=== PATIENT | female | born 1990 | race American Indian/Alaskan Native ===

== ENCOUNTER → 2016-12-18 | Outpatient (CLI) | payer BC ==
[~2016-12-18] MED LIST: IBU600 MG PO; MOTRIN 600600 MG/TAB PO; NORCO 325 MG-51 TAB PO; PRENATAL; PRENATAL1 TA2 PO
== END ==
LOC: LDRO 16:04
DX: Z53.9 Procedure and treatment not carried out, unspecified reason (principal)

== ENCOUNTER 2017-01-23 02:42 | Inpatient (IN) | payer OTHER, BC ==
[~2017-01-23] VITALS: Ht 172.7 cm; Wt 105.5 kg
[2017-01-23] VITALS (17 sets, daily range): BP systolic 103–146; BP diastolic 53–76; PULSE 72–117; TEMP 97.6–98.2
[~2017-01-23 02:42] MED LIST changes: -IBU600 MG PO; -PRENATAL
[2017-01-23 03:52] LABS: BASO # 0.1 (0.0-0.2); BASO % 0.3 % (0.0-2.0); EOS % 0.2 % (0-4.0); GRAN # 11.6 (1.4-6.5); GRAN % 75.3 % (42.2-75.2); HEMOGLOBIN 12.3 g/dl (12.5-16.0); LYMPH # 2.5 (1.2-3.4); LYMPH % 16.1 % (20.0-51.0); MEAN CELL VOLUME 83 fl (80.0-100.0); MEAN CORPUSCULAR HEMOGLOBIN 28 pg (27.0-31.0); MEAN CORPUSCULAR HGB CONC 34 g/dl (33.0-37.0); MEAN PLATELET VOLUME 10.1 fl (7.4-10.4); MONO # 1.1 (0.1-0.6); MONO % 7.1 % (1.7-9.3); PLATELET COUNT 316 K/mm3 (130-400); RED BLOOD COUNT 4.39 M/mm3 (4.10-5.30); REDCELL DISTRIBUTION WIDTH-CV 14.1 % (11.5-14.5); WHITE BLOOD COUNT 15.4 K/mm3 (4.8-10.8)
[2017-01-23 03:55] LABS: HEMATOCRIT 36.5 % (37.0-47.0)
[2017-01-23] MEDS ORDERED: PRENATAL (04:01)
[2017-01-24] MEDS ORDERED: IBU600 MG PO (08:41)
[2017-01-24 09:40] VITALS: BP 110/70; PULSE 80; TEMP 98.4
== END 2017-01-24 13:05 | disposition home or self-care (01) | DRG 775 ==
LOC: LDRO 02:42 → LDR 03:15 → OB 03:15
PROVIDERS: Obstetrics & Gynecology
PROC: 10E0XZZ Delivery of Products of Conception, External Approach (ICD-10-PCS; principal; 2017-01-23)
PROC: 0HQ9XZZ Repair Perineum Skin, External Approach (ICD-10-PCS; 2017-01-23)
DX: O62.3 Precipitate labor (principal); O70.0 First degree perineal laceration during delivery; Z3A.38 38 weeks gestation of pregnancy; Z37.0 Single live birth
CPT/HCPCS: J2590; J2795; J7120

== ENCOUNTER 2018-03-22 16:35 | Inpatient (IN) | payer OTHER ==
[~2018-03-22] VITALS: Ht 172.7 cm; Wt 105.0 kg
[~2018-03-22 16:35] MED LIST changes: +IBU600 MG PO; +PRENATAL
[2018-03-30] VITALS (29 sets, daily range): BP systolic 106–149; BP diastolic 54–84; PULSE 65–99; TEMP 97.3–97.8
[2018-03-30 08:24] LABS: BASO % 0.4 % (0.0-2.0); EOS % 0.5 % (0-4.0); GRAN % 66.9 % (42.2-75.2); HEMOGLOBIN 11.4 g/dl (12.5-16.0); LYMPH # 1.8 (1.2-3.4); LYMPH % 23.5 % (20.0-51.0); MEAN CELL VOLUME 84 fl (80.0-100.0); MEAN CORPUSCULAR HEMOGLOBIN 27 pg (27.0-31.0); MEAN CORPUSCULAR HGB CONC 32 g/dl (33.0-37.0); MEAN PLATELET VOLUME 9.8 fl (7.4-10.4); MONO # 0.6 (0.1-0.6); MONO % 7.9 % (1.7-9.3); PLATELET COUNT 363 K/mm3 (130-400); RED BLOOD COUNT 4.23 M/mm3 (4.10-5.30); REDCELL DISTRIBUTION WIDTH-CV 14.4 % (11.5-14.5)
[2018-03-30 08:29] LABS: HEMATOCRIT 35.4 % (37.0-47.0)
[2018-03-31 00:30] VITALS: BP 112/68; PULSE 64; TEMP 97.8
[2018-03-31 07:47] VITALS: BP 107/59; PULSE 76; TEMP 97.6
[2018-03-31] MEDS ORDERED: IBU800 M1 PO (10:24)
== END 2018-03-31 15:00 | disposition home or self-care (01) | DRG 775 ==
LOC: LDR 03-30 06:55 → OB 03-30 06:55 → LDR 03-30 16:31 → OB 03-30 17:30
PROVIDERS: Student in an Organized Health Care Education/Training Program
PROC: 10E0XZZ Delivery of Products of Conception, External Approach (ICD-10-PCS; principal; 2018-03-30)
PROC: 0HQ9XZZ Repair Perineum Skin, External Approach (ICD-10-PCS; 2018-03-30)
PROC: 10907ZC Drainage of Amniotic Fluid, Therapeutic from Products of Conception, Via Natural or Artificial Opening (ICD-10-PCS; 2018-03-30)
PROC: 3E033VJ Introduction of Other Hormone into Peripheral Vein, Percutaneous Approach (ICD-10-PCS; 2018-03-30)
DX: O70.0 First degree perineal laceration during delivery (principal); Z3A.39 39 weeks gestation of pregnancy; Z37.0 Single live birth; R76.11 Nonspecific reaction to tuberculin skin test without active tuberculosis
CPT/HCPCS: J2590; J7120

== ENCOUNTER 2021-02-08 21:29 | Outpatient (CLI) | payer OTHER ==
[~2021-02-08] VITALS: Ht 172.7 cm; Wt 93.2 kg
[~2021-02-08 21:29] MED LIST changes: +IBU800 M1 PO
--- NOTE | 2021-02-08 21:30 | NUR ---
2129- PT PRESENTS TO LDR COMPLAINING OF HAVING A FALL AND POSSIBLY LEAKING FLUID FROM HER VAGINA. TO ROOM LR3, CHANGED INTO GOWN. 2139- VSS. HEART TONES DOPPLERED IN 140'S WITH RELAXED UTERUS PALPATED. PT DENIES VAGINAL BLEEDING AND STATES THAT SHE IS FEELING BABY MOVE. PT ALSO DENIES CONTRACTIONS. PLAN OF CARE DISCUSSED. 2199- DR ARTHUR TO BEDSIDE FOR SPECULUM EXAM DR THOMAS IS IN THE OR. SPECULUM EXAM BY DR ARTHUR WITH NO VAGINAL FLUID POOLING, NITRIZINE NEGATIVE, AND CERVIX APPEARS CLOSED. 2209- NURSING HISTORY AND ADMSSION ASSESSMENT COMPLETE. 223- DR THOMAS OUT OF OR AND IS UPDATED ON PT HISTORY, DOPPLER, SPECULUM EXAM. ORDER RECEIVED FOR DISMISSAL. 223- HEART TONES DOPPLERED 150'S WITH RELAXED UTERUS PALPATED. 2243- DISMISSAL INSTRUCTIONS GIVEN AND PT VERBALIZES UNDERSTANDING. PT DISMISSED TO HOME AMBULATORY ACCOMPANIED BY .
[2021-02-08 21:40] VITALS: BP 110/59; PULSE 86
== END 2021-02-08 22:43 | disposition home or self-care (01) ==
LOC: LDRO 21:29 → LDR 21:29 → LDRO 22:43 → LDR 02-11 22:43
DX: O42.912 Preterm premature rupture of membranes, unspecified as to length of time between rupture and onset of labor, second trimester (principal); Z3A.22 22 weeks gestation of pregnancy
CPT/HCPCS: OP

== ENCOUNTER 2021-05-20 11:06 | Outpatient (CLI) | payer OTHER ==
[~2021-05-20] VITALS: Ht 172.7 cm; Wt 103.6 kg
--- NOTE | 2021-05-20 11:10 | NUR ---
1110- Pt arrives on unit ambulatory with for scheduled version. Pt changes into gown. 1117- Pt into bed, EFM and TOCO applied and tracing well. VSS. 1123- IV start in by JAMES Jack. 1135- Assessment completed. Pt verbalizes understanding of procendure. 1146- Dr Hsu at bedside, US completed, results breech. This RN and MD to nurses stations to prepare for version. 1153- Dr Hsu and this RN at bedside. US and TOCO off. Terbutaline given per order. Dr Reardon at bedside. See MD dictation for version results. 1200- EFM on and tracing FHR well. TOCO applied. Discussed POC. Pt verbalizes understanding.
[2021-05-20] MEDS ORDERED: TYLENOL 500MG500 MG PO (11:42)
[2021-05-20 11:45] VITALS: BP 119/74; PULSE 81; TEMP 98.1
[2021-05-20 12:30] VITALS: BP 129/70; PULSE 83
--- NOTE | 2021-05-20 13:07 | NUR ---
1307- EFM and TOCO off. IV removed without difficulty. Pt up to change into street clothes. 1320- Discharge paperwork given and explained. Pt denies questions. Ambulates off unit with in stable condition.
== END 2021-05-20 13:20 | disposition home or self-care (01) ==
LOC: LDRO 11:06
DX: Z34.93 Encounter for supervision of normal pregnancy, unspecified, third trimester (principal); Z3A.36 36 weeks gestation of pregnancy
CPT/HCPCS: J3105

== ENCOUNTER 2021-06-02 02:58 | Inpatient (IN) | payer OTHER ==
[~2021-06-02] VITALS: Ht 172.7 cm; Wt 106.9 kg
[2021-06-02] VITALS (28 sets, daily range): BP systolic 92–135; BP diastolic 51–77; PULSE 65–97; TEMP 97.6–98.3
[~2021-06-02 02:58] MED LIST changes: +TYLENOL 500MG500 MG PO
--- NOTE | 2021-06-02 03:05 | NUR ---
PT ARRIVES TO UNIT AMBULATORY WITH FOB. C/O CONTRACTIONS WORSENING IN PAIN SINCE APPROX 0200. REPORTS THIS IS HER FOURTH BABY. EFM/TOCO PLACED. CATEGORY 1 STRIP. CONTRACTIONS Q3-5MIN. DENIES LOF. REPORTS POSITIVE MOVEMENT. 0315: CLINT SmithRN /-3.
--- NOTE | 2021-06-02 05:10 | NUR ---
PT SITTING ON EDGE OF BED FOR EPIDURAL PLACEMENT, FLORENTINO BEGUM EDUCATES ON PROCEDURE. CONSENTS SIGNED. LR BOLUS INFUSING PER PROTOCOL. DENIES FURTHER QUESTIONS OR CONCERNS. 0510: SINGLE SHOT PER FLORENTINO BEGUM, VITAL SIGNS REMAIN STABLE. PT TOLERATED PROCEDURE WELL.
[2021-06-02 05:35] LABS: BASO % 0.3 % (0.0-2.0); EOS # 0.1 (0.0-0.7); EOS % 0.6 % (0-4.0); GRAN # 7.1 (1.4-6.5); GRAN % 68.2 % (42.2-75.2); HEMATOCRIT 38.5 % (37.0-47.0); HEMOGLOBIN 12.7 g/dl (12.5-16.0); LYMPH # 2.2 (1.2-3.4); LYMPH % 21.3 % (20.0-51.0); MEAN CELL VOLUME 87 fl (80.0-100.0); MEAN CORPUSCULAR HEMOGLOBIN 29 pg (27.0-31.0); MEAN CORPUSCULAR HGB CONC 33 g/dl (33.0-37.0); MEAN PLATELET VOLUME 9.9 fl (7.4-10.4); MONO # 0.9 (0.1-0.6); MONO % 8.4 % (1.7-9.3); PLATELET COUNT 298 K/mm3 (130-400); RED BLOOD COUNT 4.44 M/mm3 (4.10-5.30); REDCELL DISTRIBUTION WIDTH-CV 14.6 % (11.5-14.5)
--- NOTE | 2021-06-02 07:30 | NUR ---
Repeat SVE as patient c/o rectal pressure. SVE unchanged.
--- NOTE | 2021-06-02 07:35 | NUR ---
Repositioned to right lateral with peanut ball.
--- NOTE | 2021-06-02 08:54 | NUR ---
After pushing through one and a half contractions, spontaneous vaginal delivery of head OP by @ 0854. Spontaneous vaginal delivery of male infant by @ 0854. to mother's abdomen, dried and stimulated by nursery nurse, Emperatriz Sen RN. Umbilical cord doubly clamped and cut by father of baby with instruction from . 0856-Spontaneous vaginal delivery of placenta by . Pit bolus begun @ 333mU/min immediately following. Fundal massage, lochia WNL. repairs superficial lac with 4-[address] with explanation to patient.
--- NOTE | 2021-06-02 12:55 | NUR ---
Note patient still unable to lift right leg off of bed. Able to spontaneously void on bedpan, in amount of 250 mL. Fundus remains firm @ U, midline.
--- NOTE | 2021-06-02 14:10 | NUR ---
Assisted out of bed for first time post delivery. Note patient right leg still heavy, gait a bit wobbly, reminded to be intentional about picking right foot up. Able to spontaneously void. Anthony care provided, as well as Tucks pads, anthony pad, mesh underwear, ice pack and clean gown. Transferred to room 214 per wheelchair.
[2021-06-03 00:30] VITALS: BP 114/53; PULSE 68
[2021-06-03 07:30] VITALS: BP 117/64; PULSE 78; TEMP 97.7
[2021-06-03] MEDS ORDERED: IBU800 M1 PO (08:23)
--- NOTE | 2021-06-03 11:56 | NUR ---
DISCHARGE TEACHING COMPLETED. PATIENT EDUCATED ON F/U APPOINTMENT AND PRESCRIPTIONS. QUESTIONS INVITED AND ANSWERED.
[2021-06-03 11:59] VITALS: BP 106/58; PULSE 76; TEMP 97.7
--- NOTE | 2021-06-03 12:42 | NUR ---
Initial visit; Family thanked Corrections Sergeant for offering congratulations and God's blessings for the of their son. Corrections Sergeant thanked family for choosing [facility].
== END 2021-06-03 13:00 | disposition home or self-care (01) | DRG 807 ==
LOC: LDRO 02:58 → LDR 03:05 → LDRO 04:29 → LDR 04:46 → OB 12:04
PROVIDERS: Obstetrics & Gynecology; ADMIT Student in an Organized Health Care Education/Training Program
PROC: 10E0XZZ Delivery of Products of Conception, External Approach (ICD-10-PCS; principal; 2021-06-02)
PROC: 0HQ9XZZ Repair Perineum Skin, External Approach (ICD-10-PCS; 2021-06-02)
DX: O99.214 Obesity complicating childbirth (principal); Z37.0 Single live birth; O70.0 First degree perineal laceration during delivery; Z3A.38 38 weeks gestation of pregnancy
CPT/HCPCS: J2590; J7120